=== PATIENT | female | born 1960 | race Caucasian/White ===

== ENCOUNTER 2016-09-10 13:22 | Emergency (ER) | payer BC, OTHER ==
[~2016-09-10] VITALS: Ht 157.5 cm; Wt 53.5 kg
--- NOTE | ~2016-09-10 | EKG ---
[place] [address] [facility] [email or web address] [address] ELECTROCARDIOGRAM REPORT Name: ASIA KELLER Room #: DEP Marybeth#: [id number] Admission: 09/10/16 Attend Phys: Discharge: 09/10/16 Date of : 56 Report #: [id number] THIS REPORT FOR: //name// [facility] ED Test Date: 2016-09-10 Test Time: 13:21:26 Pat Name: ASIA KELLER Department: Room: Gender: F Director Of Respiratory Therapy: : 1960 Requested By: Jennifer Harden Order Number: [id number] MD: Lionel Garces Measurements Intervals [place] Rate: 69 P: 75 VA: 136 QRS: 72 QRSD: 85 T: 53 QT: 430 QTc: 461 Interpretive Statements Sinus rhythm Atrial premature complex Baseline wander in lead(s) V6 No previous ECG available for comparison Electronically Signed On 09-11-2016 13:52:04 CDT by Lionel Garces [email or web address] <ELECTRONICALLY SIGNED> By: Lionel Garces MD 09/11/16 1352 1321 1321 Lionel Garces MD /GALLO
[2016-09-10 14:19] LABS: BASOPHILS 0.5 % (0.0-2.0); EOSINOPHILS 0.3 % (0.0-3.0); HEMATOCRIT 44.1 % (37.0-47.0); HEMOGLOBIN 15.2 gm/dL (12.0-15.0); LYMPHOCYTES 14.6 % (24.0-44.0); MCH 34.6 pg (26.0-34.0); MCHC 34.5 g/dL (28.0-37.0); MCV 100.1 fL (80.0-100.0); MONOCYTES 4.7 % (1.0-8.0); PLATELET COUNT 319 thou/uL (150-400); POLYS 79.9 % (36.0-66.0); RDW 14.2 % (10.5-14.5); WBC 12.5 thou/uL (4.0-11.0)
[2016-09-10] MEDS ORDERED: PROZAC 20 MG20 MG PO (14:23)
[2016-09-10 14:25] LABS: MANUAL DIFF NO
[2016-09-10 14:26] LABS: ANION GAP 13 mmol/L (7-16); BUN 16 mg/dL (7-18); CALCIUM 9.3 mg/dL (8.5-10.1); CHLORIDE 101 mmol/L (98-107); CO2 25 mmol/L (21-32); CREATININE 0.8 mg/dL (0.6-1.0); GLUCOSE 73 mg/dL (74-106); POTASSIUM 3.9 mmol/L (3.5-5.1); SODIUM 139 mmol/L (136-145)
[2016-09-10 14:34] LABS: TROPONIN-I < 0.04 ng/mL (<0.04-0.07)
[2016-09-10 15:45] VITALS: BP 147/73
[2016-09-10] MEDS ORDERED: NORCO 5-325 TA1 EACH PO (16:02)
== END 2016-09-10 16:03 | disposition home or self-care (01) ==
LOC: ER 13:22
PROVIDERS: Emergency Medicine
DX: R09.1 Pleurisy (principal); R07.89 Other chest pain; F17.210 Nicotine dependence, cigarettes, uncomplicated; F10.99 Alcohol use, unspecified with unspecified alcohol-induced disorder

== ENCOUNTER 2020-02-24 18:38 | Emergency (ER) | payer OTHER ==
[~2020-02-24] VITALS: Ht 157.5 cm; Wt 49.9 kg
--- NOTE | ~2020-02-24 | EMS ---
[address] [address] EMS Patient Care Report Name: ASIA KELLER Room #: REG PEPE Rueda#: [id number] Admission: 02/24/20 Attend Phys: Discharge: Date of : 56 Report #: [id number] THIS REPORT FOR: //name// Report Transmitted: 02/24/2020 18:26 EMS Care Summary [facility] MED-ACT Incident [id number] @ 02/24/2020 17:58 Incident Location [address] [place] [address] Patient ASIA KELLER Female, 60 Years 1960 Patient Address [address] [place] [address] Patient History Depression, Patient Allergies No known allergies, Patient Medications Fluoxetine, Chief Complaint I think I broke my arm Disposition Transported No Lights/[place] Reason Falls Transported To [facility] Narrative Arrive to find the pt sitting upright on her couch in her living room smoking a cigarettes' and watching tv. Pt says that less than 10 minutes ago she went [facility] [address] [place] [address] EMS Patient Care Report Name: ASIA KELLER Room #: REG Maura.#: [id number] Admission: 02/24/20 Attend Phys: Discharge: Date of : 56 Report #: [id number] outside to take out the trash and she fell into a wall and hurt her arm. Pt says that her neighbor found her and helped her into her apartment. Pt says that she did not hit her head and she did not lose consc. Pt says that she has been drinking vodka but doesn't know how much. Pt says she thinks her upper arm and wrist are broken but says that the upper arm hurts worse. Pt says she doesn't really know why or how she fell and says that she has been falling more recently. Pt denies any CP, SOB, recent illness or any other problems. Pt rates her pain at 10/10 initially. Pt will not allow EMS to cut off her sweatshirt to expose and inspect the arm and says it hurts too much to take it off right now. PM Wiseman attempts to palpate the upper arm but the pt winces in pain immediately. Pt is helped 2 feet to the cot, secured and taken to ambulance. IV started, ECG and VS monitored. Fentanyl given for pain and pt says that it helped. Biocom to [place]' with no orders and tx is without incident. Pt converses pleasantly throughout. Pt taken to ER room 2 and report to RN at bedside and care transferred. Initial Vitals @18:17P: 55,BP: 113/77, @18:28P: 63,R: 15, @18:09P: 50,R: 18,Pain: 10/10,GCS: 15,Temp: 98.1F,SpO2: 97, @18:31P: 66,R: 14,BP: 140/81,Pain: 6/10,GCS: 15,SpO2: 100,Revised Trauma: 12,NC Suspected: false Assessments @18:26MENTAL:Person Oriented,Time Oriented,Event Oriented,Place Oriented,SKIN:HEENT:Head/Face: No Abnormalities,LUNG SOUNDS:ABDOMEN:PELVIS//GI:EXTREMITIES:Left Arm: Other,Right Arm: No Abnormalities,Left Leg: No Abnormalities,Right Leg: No Abnormalities,PULSE:NEURO:No Abnormalities, Impression Injury Procedures @18:18Saline Lock 10cc (20 ga) Site: Hand-RightResponse: UnchangedSucceeded@18:24Fentanyl - 50 Micrograms (mcg) - Intravenous (IV)Response: Improved Timeline 17:57,Call Received 17:57,Psap Call 17:58,Dispatched 17:59,En Route 18:04,On Scene 18:06,[place] [address] EMS Patient Care Report Name: ASIA KELLER Room #: REG [facility] [id number] Admission: 02/24/20 Attend Phys: Discharge: Date of : 56 Report #: [id number] 18:09,BP: / M,PULSE: 50,RR: 18 R,SPO2: 97 Ox,ETCO2: ,BG: ,PAIN: 10,GCS: 15, 18:17,BP: 113/77 M,PULSE: 55,RR: R,SPO2: Ox,ETCO2: ,BG: ,PAIN: ,GCS: , 18:18,Saline Lock 10cc 20 ga Site: Hand-Right,Response: UnchangedSucceeded, 18:22,Depart Scene 18:24,Fentanyl - 50 Micrograms (mcg) - Intravenous (IV),Response: Improved 18:28,BP: / M,PULSE: 63,RR: 15 R,SPO2: Ox,ETCO2: ,BG: ,PAIN: ,GCS: , 18:31,BP: 140/81 M,PULSE: 66,RR: 14 R,SPO2: 100 Ox,ETCO2: ,BG: ,PAIN: 6,GCS: 15, 18:33,At Destination 18:47,Call Closed Disclaimer [email or web address] Copyright [email or web address] This EMS Care Summary contains data elements from the applicable legal record (which may be displayed differently). It is designed to provide pertinent information for the following purposes: continuity of care, clinical quality, and state data reporting. The complete legal record is available to ED staff and administrators of the receiving hospital in [employer]'s Patient Tracker. All data is provided "as is."
[~2020-02-24 18:38] MED LIST: NORCO 5-325 TA1 EACH PO; PROZAC 20 MG20 MG PO
[2020-02-24] MEDS ORDERED: ULTRAM 50MG TAB50 MG PO (20:22)
[2020-02-24 20:35] VITALS: BP 139/81
== END 2020-02-24 20:35 | disposition home or self-care (01) ==
LOC: ER 18:38
DX: S42.202A Unspecified fracture of upper end of left humerus, initial encounter for closed fracture (principal); S52.502A Unspecified fracture of the lower end of left radius, initial encounter for closed fracture; F17.210 Nicotine dependence, cigarettes, uncomplicated; Z79.899 Other long term (current) drug therapy; W18.39XA Other fall on same level, initial encounter; Y93.89 Activity, other specified; Y92.89 Other specified places as the place of occurrence of the external cause; Y99.8 Other external cause status

== ENCOUNTER 2021-01-03 23:33 | Emergency (ER) | payer OTHER ==
[~2021-01-03] VITALS: Ht 157.5 cm; Wt 49.9 kg
[~2021-01-03 23:33] MED LIST changes: +ULTRAM 50MG TAB50 MG PO
[2021-01-04 01:02] VITALS: BP 156/81
== END 2021-01-04 01:05 | disposition home or self-care (01) ==
LOC: ER 23:33
DX: M79.601 Pain in right arm (principal); F10.10 Alcohol abuse, uncomplicated; F17.210 Nicotine dependence, cigarettes, uncomplicated; F12.90 Cannabis use, unspecified, uncomplicated; Z79.891 Long term (current) use of opiate analgesic; Z79.899 Other long term (current) drug therapy